=== PATIENT | male | born 2005 | race Caucasian/White ===

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

== ENCOUNTER 2023-11-28 14:40 | Emergency (ER) | payer MEDICAID ==
[~2023-11-28] VITALS: Ht 188 cm; Wt 127.5 kg
[~2023-11-28 14:40] MED LIST: SERT50TA29
[2023-11-28 18:18] LABS: BASO % 0.1 % (0.0-1.0); EOS % 0.1 % (0.0-3.0); HEMATOCRIT 43.7 % (42.0-52.0); HEMOGLOBIN 14.9 g/dl (13.5-17.5); LYMPH # 0.4 10^3/uL (1.5-5.0); LYMPH % 4.4 % (24.0-44.0); MEAN CORPUSCULAR HEMOGLOBIN 28.5 pg (27.0-33.0); MEAN CORPUSCULAR HGB CONC 34.1 g/dl (32.0-36.5); MEAN CORPUSCULAR VOLUME 83.7 fl (80.0-96.0); MONO # 0.8 10^3/uL (0.0-0.8); MONO % 9.2 % (2.0-8.0); NEUTROPHILS # 7.3 10^3/uL (1.5-8.5); PLATELET COUNT, AUTOMATED 177 10^3/uL (150-450); RED BLOOD COUNT 5.22 10^6/uL (4.30-6.10); WHITE BLOOD COUNT 8.5 10^3/uL (4.0-10.0)
[2023-11-28] MEDS: NS 1,000 ML IV ONE ×2 (18:38→19:31)
[2023-11-28] MEDS: ONDANSETRON 4MG 2ML VIAL IV ONE (18:38)
[2023-11-28 18:44] LABS: BLOOD UREA NITROGEN 11 MG/DL (9-23); CALCIUM LEVEL 9.7 MG/DL (8.5-10.1); CARBON DIOXIDE LEVEL 25 MMOL/L (20-31); CHLORIDE LEVEL 104 MMOL/L (98-107); CREATININE FOR GFR 0.73 MG/DL (0.70-1.30); GLUCOSE, FASTING 88 MG/DL (60-100); MAGNESIUM LEVEL 1.9 MG/DL (1.8-2.4); POTASSIUM SERUM 3.7 MMOL/L (3.5-5.1); SODIUM LEVEL 138 MMOL/L (136-145)
[2023-11-28 18:46] LABS: FREE T4 1.12 NG/DL (0.83-1.43); THYROID STIMULATING HORMONE 0.278 uIU/ML (0.48-4.17)
[2023-11-28] MEDS: ACETAMINOPHEN 500 MG TAB PO ONE (19:30)
[2023-11-28] MEDS: KETOROLAC 30 MG/ML 1ML VIAL IV ONE (19:31)
[2023-11-28 20:31] VITALS: BP 139/60; TEMP 99; O2SAT 99
== END 2023-11-28 21:06 | disposition home or self-care (01) ==
LOC: M ED 14:40
DX: S06.300A Unspecified focal traumatic brain injury without loss of consciousness, initial encounter (principal); E86.0 Dehydration; R51.9 Headache, unspecified; W10.8XXA Fall (on) (from) other stairs and steps, initial encounter; Y92.009 Unspecified place in unspecified non-institutional (private) residence as the place of occurrence of the external cause; Y93.89 Activity, other specified; Y99.9 Unspecified external cause status
CPT/HCPCS: 70450; 71045; 72125; 80048; 83735; 84439; 84443; 85025; 85379; 86618; 93005; 93041; 94760; 96361; 96374; 96375; 99284; J1100; J1885; J2405